=== PATIENT | male | born 1960 | race African-American/Black ===

== ENCOUNTER 2022-12-10 05:04 | Emergency (ER) | payer SELFPAY ==
[~2022-12-10] VITALS: Ht 170.2 cm; Wt 75.0 kg
[2022-12-10 05:10] VITALS: BP 132/88
--- NOTE | 2022-12-10 05:16 | NUR ---
refuses to have me draw his blood.
== END 2022-12-10 06:17 ==
LOC: ER 05:05
DX: F10.129 Alcohol abuse with intoxication, unspecified (principal); Y90.9 Presence of alcohol in blood, level not specified
CPT/HCPCS: 82948; 99283

== ENCOUNTER 2025-05-05 18:46 | Emergency (ER) | payer MEDICARE, MEDICAID ==
[~2025-05-05] VITALS: Ht 167.6 cm; Wt 70.3 kg
--- NOTE | 2025-05-05 19:34 | Physician Documentation ---
History of Present Illness ~ Chief Complaint: Neck pain Stated Complaint: COVID TEST Time Seen by MD: 19:06 HPI This 40-year-old male presents to the ED after being evaluated in [facility] ED yesterday for neck pain. Also states that he has been exposed to URIs while locally. Says he has coughed up some phlegm denies any fevers denies any sore throats. States he wants to be tested for COVID. Denies any injury to his neck but reports increased stiffness in the left side Day of Onset: May 05, 2025 Medication Reconciliation Allergies: Coded Allergies: No Known Allergies (Unverified , 12/10/22) Scheduled Ibuprofen* (Motrin*), 1 TAB PO Q8H Past Medical History Past Medical History: No Pertinent History Past Surgical History: noncontributory Alcohol Use: Occasionally Review of Systems All Other Systems at this time: Reviewed and Negative ROS As stated above in the HPI, otherwise all systems are reviewed and negative. Physical Exam Vital Signs: Temperature: 98.1, Source: Oral, Heart Rate: 95, Respiratory Rate: 16, BP: 141/76, Pulse Oximetry: 99, Weight: 70.300 Oxygen Flow Rate: 0 Physical Exam General: Alert, no apparent distress. HEENT: PERRL, EOMI, no injection, moist mucous membranes. Neck: Full range of motion. Tenderness left side of the neck via palpation Respiratory: Lungs clear, no respiratory distress. Chest: No accessory muscle use. Cardiovascular: Regular rate and rhythm, no murmurs. Gastrointestinal: Soft, nontender, nondistended. Bowels sounds present. Neurologic: Oriented x4. Psychiatric: Normal mood and affect. Skin: Normal color, warm and dry. No edema, no ecchymosis. Progress Results/Orders Results/Orders Orders - TYRELL CAPPS NP Covid19 Binax Poc Result Entry (05/05/25 19:08) Vital Signs 05/05/25 18:56 Temp 98.1 Pulse 95 Resp 16 B/P (MAP) 141/76 Pulse Ox 99 O2 Flow Rate 0 Laboratory Tests Test 05/05/25 19:07 SARS-CoV-2 Antigen (Rapid) Negative Medical Decision Making Findings Does not present any acute distress I did order a COVID test to confirm or deny his virus., I do suspect that tenderness patient reports a secondary to a virus that he is working through. It is not present acutely ill ,nor does the show any signs that would be concerning for meningitis. That has prescribed cyclobenzaprine which I think it was appropriate. Patient was advised not to drive while taking this medication. Discussed with the patient that his neck pain is likely secondary to a URI. Discharge this patient regardless of piece has COVID were not advised him to rest take medication as prescribed Differential Dx:Considerations: Include: Cervical muscle spasm, Discitis, DJD, Meningitis, Thyroiditis, Torticollis, Vertebral artery dissect., Other Departure Disposition: HOME / SELF CARE / HOMELESS Impression: Primary Impression: Neck pain Additional Impression: URI (upper respiratory infection) Condition: Stable Discharge Instructions: Acute Torticollis, Adult Referrals: NO PRIMARY CARE PROVIDER (PCP) Prescriptions Ibuprofen* (Motrin*) 400 Mg Tablet 1 TAB PO Q8H for pain or fever for 20 Days, #60 TAB Prov: TYRELL CAPPS MIDDLE CARD TENDER 05/05/25 Education Educated: Patient Educated regarding: diagnosis Signature Scribe Signature: m Attestation: Scribed for Tyrell Capps [employer]er by Tyrell Capps - TABATHA . 05/05/25 19:34 TYRELL CAPPS MIDDLE CARD TENDER May 05, 2025 19:34
[2025-05-05] MEDS ORDERED: IBUP-1984 PO (19:40)
[2025-05-05 20:02] VITALS: BP 140/74; PULSE 92; RESP 18; TEMP 98.6; O2SAT 99
== END 2025-05-05 20:03 | disposition home or self-care (01) ==
LOC: ER 18:46
DX: M54.2 Cervicalgia (principal); J06.9 Acute upper respiratory infection, unspecified; Z20.822 Contact with and (suspected) exposure to COVID-19
CPT/HCPCS: 36415; 87811; 99283